=== PATIENT | male | born 1950 | race Caucasian/White ===

== ENCOUNTER 2023-10-28 15:10 | Outpatient (RCR) | payer OTHER, SELFPAY ==
[2023-10-02 14:47] LABS: Glucose - Point of Care 123 mg/dl (70-99)
[2023-10-02 15:33] LABS: Glucose - Point of Care 94 mg/dl (70-99)
[2023-10-07 14:40] LABS: Glucose - Point of Care 128 mg/dl (70-99)
[2023-10-07 15:23] LABS: Glucose - Point of Care 105 mg/dl (70-99)
[2023-10-09 14:40] LABS: Glucose - Point of Care 111 mg/dl (70-99)
[2023-10-09 15:27] LABS: Glucose - Point of Care 98 mg/dl (70-99)
[2023-10-12 14:55] LABS: Glucose - Point of Care 120 mg/dl (70-99)
[2023-10-12 15:42] LABS: Glucose - Point of Care 78 mg/dl (70-99)
[2023-10-14 15:02] LABS: Glucose - Point of Care 95 mg/dl (70-99)
[2023-10-14 15:57] LABS: Glucose - Point of Care 94 mg/dl (70-99)
[2023-10-19 15:03] LABS: Glucose - Point of Care 85 mg/dl (70-99)
[2023-10-19 15:22] LABS: Glucose - Point of Care 80 mg/dl (70-99)
[2023-10-21 14:40] LABS: Glucose - Point of Care 91 mg/dl (70-99)
[2023-10-21 15:28] LABS: Glucose - Point of Care 78 mg/dl (70-99)
[2023-10-26 15:08] LABS: Glucose - Point of Care 83 mg/dl (70-99)
[2023-10-26 15:17] LABS: Glucose - Point of Care 96 mg/dl (70-99)
[2023-10-26 16:04] LABS: Glucose - Point of Care 122 mg/dl (70-99)
[2023-10-28 14:41] LABS: Glucose - Point of Care 114 mg/dl (70-99)
[2023-10-28 15:43] LABS: Glucose - Point of Care 92 mg/dl (70-99)
== END 2023-10-28 23:59 | disposition home or self-care (01) ==
LOC: CRHB 15:10
PROVIDERS: ATTENDING PHYSICIAN Internal Medicine Cardiovascular Disease
DX: I25.10 Atherosclerotic heart disease of native coronary artery without angina pectoris (principal); Z95.1 Presence of aortocoronary bypass graft
CPT/HCPCS: 82962; G0422; G0423

== ENCOUNTER → 2023-11-11 17:48 | Outpatient (REF) | payer OTHER, SELFPAY | LOC: RAD 17:48 | PROVIDERS: ATTENDING PHYSICIAN Family Medicine | DX: R05.3 Chronic cough (principal) | CPT/HCPCS: 71046 ==

== ENCOUNTER 2023-11-25 15:22 | Outpatient (RCR) | payer OTHER, SELFPAY ==
[2023-11-02 14:46] LABS: Glucose - Point of Care 92 mg/dl (70-99)
[2023-11-02 15:42] LABS: Glucose - Point of Care 78 mg/dl (70-99)
[2023-11-02 16:00] LABS: Glucose - Point of Care 99 mg/dl (70-99)
[2023-11-04 14:40] LABS: Glucose - Point of Care 115 mg/dl (70-99)
[2023-11-04 15:40] LABS: Glucose - Point of Care 94 mg/dl (70-99)
[2023-11-16 15:00] LABS: Glucose - Point of Care 101 mg/dl (70-99)
[2023-11-16 16:01] LABS: Glucose - Point of Care 88 mg/dl (70-99)
[2023-11-18 14:43] LABS: Glucose - Point of Care 107 mg/dl (70-99)
[2023-11-18 15:53] LABS: Glucose - Point of Care 87 mg/dl (70-99)
[2023-11-20 14:43] LABS: Glucose - Point of Care 82 mg/dl (70-99)
[2023-11-20 15:42] LABS: Glucose - Point of Care 88 mg/dl (70-99)
[2023-11-25 14:40] LABS: Glucose - Point of Care 107 mg/dl (70-99)
[2023-11-25 15:39] LABS: Glucose - Point of Care 97 mg/dl (70-99)
== END 2023-11-25 23:59 | disposition home or self-care (01) ==
LOC: CRHB 15:22
PROVIDERS: ATTENDING PHYSICIAN Internal Medicine Cardiovascular Disease
DX: I25.10 Atherosclerotic heart disease of native coronary artery without angina pectoris (principal); Z95.1 Presence of aortocoronary bypass graft; Z95.5 Presence of coronary angioplasty implant and graft
CPT/HCPCS: 82962; G0422; G0423

== ENCOUNTER 2023-12-24 10:51 | Outpatient (RCR) | payer OTHER, SELFPAY ==
[2023-11-27 14:39] LABS: Glucose - Point of Care 90 mg/dl (70-99)
[2023-11-27 15:45] LABS: Glucose - Point of Care 91 mg/dl (70-99)
== END 2023-12-24 23:59 | disposition home or self-care (01) ==
LOC: CRHB 10:51
PROVIDERS: ATTENDING PHYSICIAN Internal Medicine Cardiovascular Disease
DX: Z95.1 Presence of aortocoronary bypass graft (principal); I25.10 Atherosclerotic heart disease of native coronary artery without angina pectoris
CPT/HCPCS: 82962; G0422; G0423

== ENCOUNTER 2024-01-24 11:05 | Emergency (ER) | payer OTHER, SELFPAY ==
[2024-01-24 11:11] VITALS: BP 115/66
[2024-01-24 11:55] VITALS: BMI 31.9
--- NOTE | 2024-01-24 12:06 | ED.GENMED ---
History of Present Illness
General
Chief Complaint: Chest Pain
Source: patient
Exam Limitations: none
Time Seen by Provider: 01/24/24 11:46
Travel History
Have you had any contact with someone who has COVID-19?: No
Do you have any symptoms of coronavirus? Fever > 100 degrees, chills, cough, shortness of breath, sore throat, loss of taste or smell, muscle aches, or headache?: Yes
Symptoms:: see note
History of Present Illness
History of Present Illness:
73-year-old male started with intermittent chest burning x 3 days. Initially started after using an inhaler when he had some shortness of breath that he attributed to allergies. He then noted without using the inhaler he was also developing the
symptoms. Not exertional. Happens every 20 to 30 minutes. It episodes lasted about a minute. No radiation no nausea or diaphoresis. Patient states this does feel similar to when he had his open heart surgery and symptoms at that time. However
patient does exercise to take walks without issues with
Past History
Past History
ED Past Medical History: CAD, GERD, HTN, Hypercholesterolemia, PR and Seizures
ED Past Surgical History: Cardiac, Orthopedic and Urological (TURP)
Social History
Tobacco: Former smoker
Alcohol: Occasional
Drug: None
Personal:
Living: with family
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)
Family History
Family History: CAD
Review of Systems
Review of Systems
All Other Systems: Not applicable
Constitutional: Denies fever
Respiratory: Denies cough
ABD/GI: Reports no symptoms
Phy Exam
Physical Exam
Physical Exam:
GENERAL: Alert and oriented in no apparent distress
EYE: Orbits normal.
NECK: Supple, no significant adenopathy.
ENT: Pharynx without erythema
CARDIAC: Regular rate and rhythm without any obvious murmurs. Sternotomy scar
LUNGS: No respiratory distress but a few crackles in the bases dry in nature
ABDOMEN: Soft, without focal tenderness or distention
NEUROLOGICAL: Alert and oriented , grossly non-focal
SKIN: Warm and dry, no rash or lesion, no discoloration, skin intact.
MUSCULOSKELETAL: Minimal bilateral edema. Warm and dry. Good perfusion
PSYCH: Normal and appropriate interaction.
Scores
Heart Score for Chest Pain Patients
STEMI patient?: No
History: Slightly or Non-Suspicious
ECG: Normal
Age: >/= 65 years
Risk Factors: >/= 3 Risk Factors or History of CAD
Troponin: </= Normal Limit
Heart Score for Chest Pain Patients: 4
Heart Score Risk: 20.3% MACE over next 6 weeks
Course
Orders/Labs/Results
Orders:
Orders
01/24/24 11:11
ECG [Electrocardiogram (*1)] Urgent
Reason for Study: Chest Pain
EKG- Treatment ONCE
01/24/24 11:55
Cardiac Monitoring- Treatment ONCE
IV Insert/Care/Rem.- Treatment PRN
CR Chest - 2 Views Urgent
Comment:
Reason For Exam: cp
Pulse Ox/cont/shift [RESP] Stat
Quantity: 1
01/24/24 12:02
Basic Metabolic Panel Urgent
Complete Blood Count/With Diff Urgent
Troponin I Urgent
Abnormal Lab Results
01/24/24
12:02
RBC 4.36 L 10^6/uL
(4.70-6.10)
Hgb 11.8 L g/dL
(13.0-18.0)
Hct 34.7 L %
(39.0-52.0)
MCV 79.6 L fL
(80.0-94.0)
RDW 15.4 H %
(11.5-14.5)
Absolute Monos (auto) 1.1 H 10^3/uL
(0.1-0.6)
Lymphocytes % 18.0 L %
(20.5-51.1)
Monocytes % 11.3 H %
(1.7-9.3)
01/24/24 12:02
01/24/24 12:02
Vital Signs
Initial and Last Documented VS:
Initial Vital Signs
Temp Pulse Resp BP Pulse Ox
97.9 F 64 16 115/66 96
01/24/24 11:11 01/24/24 11:11 01/24/24 11:11 01/24/24 11:11 01/24/24 11:11
Last Documented Vital Signs
Temp Pulse Resp BP Pulse Ox
97.9 F 64 22 112/87 99
01/24/24 11:11 01/24/24 13:24 01/24/24 13:24 01/24/24 13:24 01/24/24 13:24
MDM/Problems Addressed
Differential Diagnosis Includes:
Patient with intermittent burning in his chest over the last 3 days. Part of the history is concerning in the way he states this does feel similar to his pre-CABG symptoms. However these are nonexertional and patient is taken a long walk yesterday
without issues. He has nonspecific EKG changes however this is post CABG. Troponin pending. Given the frequency of symptoms feel cardiac evaluation is appropriate.
*Pulse Oximetry
Patient hypoxic: no
*EKG
Interpreted by ED Provider?: Yes
Interpretation: abnormal
Comparison EKG: changes noted
Heart Rate: 66
Rate: normal
Rhythm: sinus
Gre[place]: normal axis
Interval: normal interval
QRS Pattern: normal QRS
Ischemia: non-specific ST changes
*Research Geologist Interpretation
Rate: normal
Interpretation: normal
Heart Rate: 70
Rhythm: sinus
*Critical Care Note
Total Time (30-74mins, 75-104mins- exclusive of procedures): Not Applicable
Data Reviewed
Review of Other/Old Records Reveals: Labs, Records, Radiology Studies, Operative Reports and Discharge Summary
Update Note
Update Note:
Patient seen and cleared by cardiology. Medically stable. Discharged to follow-up
ED Attending Note
-
Portions of this chart may have been created with voice recognition software.� Occasional wrong word or��sound alike� substitutions may have occurred due to the inherent limitations of voice recognition software.
Discharge Plan
Departure
Patient Disposition: Home (Routine Discharge)
Date of Disposition: 01/24/24
Time of Disposition: 13:54
Patient with high blood pressure during this ER visit?: Yes
Discharge Problem:
Recurrent anterior chest pain, History of CAD/CABG
Instructions: Chest Pain (DC), BLOOD PRESSURE
Prescriptions:
No Action
ezetimibe 10 MG tablet
10 mg PO HS
levetiracetam 500 MG tablet
1,000 mg PO BID
lamotrigine 200 MG tablet
200 mg PO BID
clopidogrel 75 MG tablet
75 mg PO DAILY
cholecalciferol (vitamin D3) 2,000 UNIT tablet
1 tab PO DAILY
metformin 500 MG tablet extended release 24 hr
500 mg PO BID
Emigdio 128 2 % Drops
1 drp BOTH EYES QID
amlodipine-atorvastatin 5-80 mg Tablet
1 tab PO DAILY
Ozempic 0.25 mg or 0.5 mg (2 mg/3 mL) Pen Injector
0.5 mg SC FR
Probiotic
1 cap PO DAILY
acetaminophen [Tylenol Extra Strength] 500 MG tablet
1,000 mg PO Q6HPRN PRN (Reason: pain)
aspirin 81 MG tablet,delayed release (DR/EC)
81 mg PO DAILY
metoprolol tartrate 25 mg Tablet
25 mg PO Q12 Qty: 60 1RF
Referrals:
Dimitri,Esteban E., MD [Family Provider] - Follow up in 2-3 days
Activity Restrictions/Additional Instructions:
Follow-up per your history tutor, however return immediately with any progression of symptoms or concerns
Interventions
Interventions:
*Risk Screen - Suicide Last Done: 01/24/24 11:56
*General Assessment Last Done: 01/24/24 11:55
*Neglect/Abuse Screening Last Done: 01/24/24 11:55
ED- Fall Risk Assessment Last Done: 01/24/24 11:56
*ED COVID-19 Vaccine History Last Done: 01/24/24 11:55
ED- Cardiac Assessment Last Done: 01/24/24 12:15
ED- Pulmonary Assessment Last Done: 01/24/24 12:15
Discharge Date and Time
Print Language: POLISH
[2024-01-24 12:09] VITALS: BP 109/87
[2024-01-24 12:25] LABS: % Basophils 0.5 % (0-2); % Eosinophils 2.2 % (0-6); % Immature Granulocytes 0.3 % (0-0.5); % Monocytes 11.3 % (1.7-9.3); % Neutrophils 67.7 % (42.2-75.2); Absolute Basophils 0.1 10^3/uL (0-0.2); Absolute Eosinophils 0.2 10^3/uL (0-0.7); Absolute Lymphocytes 1.7 10^3/uL (1.2-3.4); Absolute Monocytes 1.1 10^3/uL (0.1-0.6); Absolute Neutrophils 6.3 10^3/uL (1.4-6.5); Hematocrit 34.7 % (39.0-52.0); Hemoglobin 11.8 g/dL (13.0-18.0); Mean Corpuscular Hgb 27.1 pg (27.0-31.0); Mean Corpuscular Volume 79.6 fL (80.0-94.0); Mean Platelet Volume 9.4 fL (7.4-10.4); Nucleated Red Blood Cells % 0 % (-); Platelet Count 252 10^3/uL (130-400); Red Blood Cell Count 4.36 10^6/uL (4.70-6.10); Red Cell Dist. Width 15.4 % (11.5-14.5); White Blood Cell Count 9.3 10^3/uL (4.8-10.8)
[2024-01-24 12:35] LABS: Blood Urea Nitrogen 19 mg/dl (9-20); Calcium 9.9 mg/dl (8.4-10.2); Carbon Dioxide 28 mmol/L (22-30); Chloride 102 mmol/L (98-107); Estimated Creatinine Clearance 101 ml/min; Glucose 90 mg/dl (70-99); Potassium 4.4 mmol/L (3.5-5.1); Sodium 135 mmol/L (135-145); eGFR > 60.00
[2024-01-24 12:41] LABS: Troponin I < 0.012 ng/ml
--- NOTE | 2024-01-24 12:50 | CON.CAR ---
Consultation
Consultation Request
Date/Time Consultation Requested: 01/24/2024 11:50
Date/Time Consultation Performed: 01/24/2024 12:20
Requesting Provider: Nahum
Performing Provider: Moira
Reason for Consultation: Chest pain
Medical History
-
Chief Complaint: Chest pain
History of Present Illness:
Sukhi has a history of coronary artery disease dating back to his mid 40s with multiple stents to the LAD, stent of mid to distal RCA as well as ramus, diagonal stent 07/06/2023, hypertension, hyperlipidemia, asthma, probable sleep apnea, diabetes,
reflux disease. He underwent CABG with MARCANO to LAD off-pump in July 2023 with left atrial appendage clip. He has been doing very well exercising 3 to 4 days a week and is lost 40 pounds. He continues to exercise in cardiac rehab at the
present time. 3 days ago he noted chest discomfort. He thought this was due to an inhaler he had taken. Of note the discomfort was like a burning in the center of his chest. It would last approximately a minute or 2. It would come and go
throughout the day. It would occur with or without exertion. Of note the discomfort is different than the pain he had prior to his CABG in July 2023. The pain prior to his CABG was more of a pressure discomfort
Past Medical History
Past Medical History: Other (See HPI)
Past Surgical History: Cardiac (Multiple stents to LAD, ramus, RCA/right PDA, status post CABG in July 2023 with off-pump MARCANO to LAD), Orthopedic (Left total knee replacement surgery 2016, carpal tunnel release bilaterally in 2010 with repeat
carpal tunnel surgery in 2019, left foot bunionectomy in August 2022 with revision in September 2022) and Urological (TURP in 2012)
Social History
Tobacco: Former Smoker
Alcohol: Occasional
Drug: None
Personal:
Living: With Family
Employment: Employed
Family History
Family History: Other (Father at 88 of CHF, mother at 90 of colon cancer)
Allergies / Home Medications
Allergy/AdvReac Type Severity Reaction Status Date / Time
cephalexin monohydrate Allergy Anaphylaxis; Verified 01/24/24 12:01
[From Keflex] Patient
states his
throat
feels
funny,
itchy th
codeine Allergy Hives, Verified 01/24/24 12:01
rash,
throat
closes
diphenhydramine Allergy seizures Verified 01/24/24 12:01
guaifenesin Allergy hallucinati Verified 01/24/24 12:01
[From Robitussin A-C] ons
Penicillins Allergy Hives, Verified 01/24/24 12:01
rash,
throat
closes
�Medication �Instructions �Recorded �Confirmed �Type
ezetimibe 10 mg tablet 10 mg PO HS High Cholesterol 08/09/09 08/14/23 History
levetiracetam 500 mg tablet 1,000 mg PO BID Seizures 11/01/13 08/14/23 History
lamotrigine 200 mg tablet 200 mg PO BID Seizures 06/19/15 07/29/23 History
clopidogrel 75 mg tablet 75 mg PO DAILY Blood Clot 05/09/18 08/14/23 History
Prevention/Tx
cholecalciferol (vitamin D3) 50 1 tab PO DAILY Supplement 07/30/18 08/14/23 History
mcg (2,000 unit) tablet
metformin 500 mg tablet,extended 1,000 mg PO DAILY Diabetes 01/04/22 08/14/23 History
release 24 hr
metformin 500 mg tablet,extended 500 mg PO HS Diabetes 01/04/22 08/14/23 History
release 24 hr
promethazine-DM 6.25 mg-15 mg/5 mL 5 - 10 ml PO Q8 PRN cough #120 mL 01/04/22 07/29/23 Rx
oral syrup
Probiotic 1 cap PO DAILY Supplement 06/16/23 07/29/23 History
albuterol sulfate 90 mcg/actuation 2 puff inhalation Q4HPRN PRN 06/16/23 07/29/23 History
aerosol inhaler Allergies, SOB
amlodipine 5 mg-atorvastatin 80 mg 1 tab PO DAILY Blood pressure/high 06/16/23 08/14/23 History
tablet cholesterol
semaglutide 0.25 mg or 0.5 mg (2 0.5 mg SC FR Diabetes 06/16/23 08/14/23 History
mg/3 mL) subcutaneous pen injector
(Ozempic)
sodium chloride 2 % eye drops 1 drp BOTH EYES QID Eye Condition 06/16/23 07/29/23 History
(Emigdio 128)
acetaminophen 500 mg tablet 1,000 mg PO Q6HPRN PRN pain 06/18/23 07/29/23 History
(Tylenol Extra Strength)
aspirin 81 mg tablet,delayed 81 mg PO DAILY Blood Clot 08/14/23 08/14/23 History
release Prevention/Tx
guaifenesin 600 mg tablet, 600 mg PO Q12 PRN congestion #0 08/18/23 Rx
extended release 12 hr tabs
metoprolol tartrate 25 mg tablet 25 mg PO Q12 #60 tabs 08/18/23 Rx
oxycodone 5 mg tablet 5 mg PO .Q6H PRN PRN 08/18/23 Rx
moderate-severe pain control #28
tabs
pantoprazole 40 mg tablet,delayed 40 mg PO DAILY GI prophylaxis #30 08/18/23 Rx
release tabs
Review of Systems
-
History Source: Patient
All other systems: Negative unless noted
Constitutional: Weight Loss (Weight loss of 40 pounds with diet and exercise and Ozempic)
EENT: No Symptoms
Respiratory: No Symptoms
Cardiac: Chest Pain
Abdomen/GI: No Symptoms
: No Symptoms
Musculoskeletal: No Symptoms
Skin: No Symptoms
Neurological: No Symptoms
Endocrine: No Symptoms
Hematologic/Lymphatic: No Symptoms
Physical Exam
Vital Signs
Temp Pulse Resp BP Pulse Ox
97.9 F 64 16 115/66 96
01/24/24 11:11 01/24/24 11:11 01/24/24 11:11 01/24/24 11:11 01/24/24 11:11
General: Well developed, well nourished in NAD.
Neck: Supple, no JVD, HJR, carotids +2 B/L, no bruits bilaterally.
Heart: Non displaced PMI, RRR, no murmurs, No S3, S4, no rubs.
Lungs: Clear to auscultation bilaterally, no wheeze, rhonchi, rubs bilaterally,
normal expiratory phase.
Abdomen: Normal bowel sounds, soft, non-tender, non-distended.
Extremities: No clubbing, cyanosis or edema bilaterally.
Neuro: Grossly nonfocal, awake, alert and oriented x3.
Lab Results
01/24/24 12:02
01/24/24 12:02
Troponin I < 0.012 ng/ml 01/24/24 12:02
Impression / Plan
-
Primary squeezer operator: Dr. CRUZ Mcnair
Assessment:
chest pain
s/p CABG x1 MARCANO to LAD off pump, LAAL, cryoablation 08/14/23
Coronary artery disease/myocardial infarction x2
s/p PCI with LAD stent 1995
s/p drug-eluting stent to ramus 2013
s/p drug-eluting stent to mid-distal RCA into PDA 2016
s/p drug-eluting stent to mid LAD 2017
s/p drug-eluting stent to mid D1 07/06/2023Hypertension
Hyperlipidemia
Cardiac murmur without significant valvular disease
Asthma, mild and intermittent
Probable obstructive sleep apnea
Non-insulin dependent diabetes
GERD
Colon polyps/Diverticulosis/Hemorrhoids
Epilepsy, on Keppra
Vertigo
Lumbar stenosis
Osteoarthritis, status post left total knee arthroplasty 2015
BPH
Psoriasis
Group B Strep bacteremia 2010
Hearing impairment bilaterally
Obesity, BMI 38.5
Remote history of tobacco abuse
ECHO 07/27/23: EF 60 to 65%, GLS -20.8%, aortic sclerosis, mild concentric LVH
Plan:
He presents with chest discomfort. This is in the center of his chest in different from his pain prior to bypass surgery. He has been exercising regularly including a 40-minute walk last night without issue. His troponin is undetectable. I feel
he is okay for discharge to home but he will call with recurrent pain. He has a follow-up visit with Dr. Mcnair on February 03.
Data Reviewed
-
EKG: Tracing Personally Visualized and interpreted
Medical Tests (Nuc Med, Echo etc): Report Reviewed by me
Labs: Labs Reviewed by me
Old Records: Reviewed
[2024-01-24 13:00] VITALS: BP 99/77
[2024-01-24 13:24] VITALS: BP 112/87
[2024-01-24 14:00] VITALS: BP 116/70
== END 2024-01-24 14:30 | disposition home or self-care (01) ==
LOC: EMR 11:05
PROVIDERS: EMERGENCY PHYSICIAN Emergency Medicine; FAMILY PHYSICIAN Family Medicine; OTHER PHYSICIAN Internal Medicine Cardiovascular Disease
DX: R07.89 Other chest pain (principal); I25.10 Atherosclerotic heart disease of native coronary artery without angina pectoris; I10 Essential (primary) hypertension; K21.9 Gastro-esophageal reflux disease without esophagitis; E78.00 Pure hypercholesterolemia, unspecified; R56.9 Unspecified convulsions; J45.909 Unspecified asthma, uncomplicated; E11.9 Type 2 diabetes mellitus without complications; G40.909 Epilepsy, unspecified, not intractable, without status epilepticus; M48.061 Spinal stenosis, lumbar region without neurogenic claudication; M19.90 Unspecified osteoarthritis, unspecified site; N40.0 Benign prostatic hyperplasia without lower urinary tract symptoms; L40.9 Psoriasis, unspecified; E66.9 Obesity, unspecified; Z68.38 Body mass index [BMI] 38.0-38.9, adult; I25.2 Old myocardial infarction; Z95.1 Presence of aortocoronary bypass graft; Z96.652 Presence of left artificial knee joint; Z95.5 Presence of coronary angioplasty implant and graft; Z87.891 Personal history of nicotine dependence; Z79.84 Long term (current) use of oral hypoglycemic drugs; Z79.82 Long term (current) use of aspirin; Z88.1 Allergy status to other antibiotic agents; Z88.0 Allergy status to penicillin; Z88.8 Allergy status to other drugs, medicaments and biological substances
CPT/HCPCS: 99285; 94760; 71046; 80048; 84484; 85025; 93005

== ENCOUNTER 2024-01-26 13:39 | Outpatient (RCR) | payer OTHER, SELFPAY | END 2024-01-26 23:59 | disposition home or self-care (01) | LOC: CRHB 13:39 | PROVIDERS: ATTENDING PHYSICIAN Internal Medicine Cardiovascular Disease; FAMILY PHYSICIAN Family Medicine | DX: I25.10 Atherosclerotic heart disease of native coronary artery without angina pectoris (principal); Z95.5 Presence of coronary angioplasty implant and graft | CPT/HCPCS: G0422; G0423 ==

== ENCOUNTER 2025-03-06 06:17 | Day surgery (SDC) | payer OTHER, SELFPAY ==
[2025-03-06 09:18] LABS: Glucose - Point of Care 83 mg/dl (70-99)
== END 2025-03-06 10:21 | disposition home or self-care (01) ==
LOC: GI 06:17
PROVIDERS: ATTENDING PHYSICIAN Internal Medicine Gastroenterology; FAMILY PHYSICIAN Family Medicine
DX: Z12.11 Encounter for screening for malignant neoplasm of colon (principal); K57.30 Diverticulosis of large intestine without perforation or abscess without bleeding; K64.8 Other hemorrhoids; Z86.0100 Personal history of colon polyps, unspecified
CPT/HCPCS: G0105; 82962

== ENCOUNTER → 2025-06-26 12:07 | Outpatient (REF) | payer OTHER, SELFPAY | LOC: RAD 12:07 | PROVIDERS: ATTENDING PHYSICIAN Family Medicine; FAMILY PHYSICIAN Family Medicine | DX: M25.551 Pain in right hip (principal); M25.561 Pain in right knee; M79.602 Pain in left arm | CPT/HCPCS: 73502; 73552; 73564; 73590 ==

== ENCOUNTER → 2025-07-13 13:34 | Outpatient (REF) | payer OTHER, SELFPAY | LOC: RAD 13:34 | PROVIDERS: ATTENDING PHYSICIAN Family Medicine | DX: R05.2 Subacute cough (principal) | CPT/HCPCS: 71046 ==